=== PATIENT | male | born 1955 | race Caucasian/White ===

== ENCOUNTER 2021-07-16 10:31 | Emergency (ER) | payer OTHER, SELFPAY ==
[2021-07-16 10:40] VITALS: BP 119/58; PULSE 82; RESP 16; TEMP 38.2; O2SAT 98
--- NOTE | 2021-07-16 10:40 | ED.SKABFB ---
HPI - Skin/Abscess/Foreign Bdy General Chief complaint: Skin/Abscess/Foreign Body Stated complaint: left leg pain Time Seen by Provider: 07/16/21 10:33 Source: patient, family and RN notes reviewed History of Present Illness HPI narrative: Patient is a 66-year-old male who presents the urgent care with his spouse with complaints of left lower leg redness, pain, swelling with fever, chills and nausea. Patient states that all day yesterday he was feeling feverish with chills and nausea. States that late last night he had mild redness to the left lower leg and woke up this morning with the redness and swelling. Patient denies any history of DVT. Denies of any shortness of breath or chest pain. Patient has not taken anything [id number] for his symptoms. No other acute complaints. No acute distress noted. Patient and spouse aware of the plan of care. Some parts of this dictation were generated by voice recognition software and may contain typographical and/or grammatical inaccuracies. Related Data Allergies Allergy/AdvReac Type Severity Reaction Status Date / Time No Known Allergies Allergy Verified 07/16/21 10:51 Review of Systems Review of Systems: CONSTITUTIONAL: Denies fever, chills, or sweats. EYES: Denies visual changes, redness, or discharge. ENT: Denies rhinorrhea, congestion, sore throat, or otalgia. CARDIOVASCULAR: Denies chest pain, palpitations, or edema. RESPIRATORY: Denies cough or dyspnea. GASTROINTESTINAL: Denies abdominal pain, nausea, vomiting, or diarrhea. GENITOURINARY: Denies dysuria or hematuria. SKIN: Reports of redness, pain and swelling to the left lower leg MUSCULOSKELETAL: Denies back pain, joint pain, or myalgia. NEUROLOGIC: Denies headache, numbness, or weakness. All other systems reviewed are negative, except as documented in HPI. [facility] Family History Family History Sibling Family history of hepatitis Father Family history of congestive heart failure Social History Social History Smoking status: Former smoker Comments At the time of my signature, I reviewed and agree with the nursing past medical, surgical, social, and family history. There is no relevant family history pertinent to the patient complaint. Exam Narrative: GENERAL: This is a well-nourished, well-developed patient, in no apparent distress. HEAD: normocephalic, atraumatic. EYES: PERRL. Sclera clear/white. Vision is grossly intact. EARS: External ears normal NOSE: External nose normal with no obvious nasal discharge, nares without redness, no rhinorrhea. THROAT: Mucous membranes moist NECK: Neck supple CARDIOVASCULAR: Regular rate and rhythm without murmurs, gallops, or rubs. RESPIRATORY: Clear to auscultation. Breath sounds equal bilaterally. No wheezes, rales, or rhonchi. SKIN: See extremity. 4 x 4 centimeter patchy psoriasis to the left lower leg. Warm, intact NEURO: awake, alert, and oriented to person, place and time. There were no obvious focal neurologic abnormalities. EXTREMITIES: 1+ edema to left lower extremity. Erythema measuring 22 cm proximal to distal covering the circumference (16 inches) of the left lower extremity. Bilateral calves equal in size. Positive strong left pedal pulse with capillary refill less than 2 seconds. Range of motion to left lower extremity within normal normal limits. Mild to moderate tenderness to the medial upper inner thigh. Course Course Level of Care: Express Care Visit Vital Signs Vital signs: Vital Signs Temperature 100.8 F H 07/16/21 10:40 Pulse Rate 82 07/16/21 10:40 Respiratory Rate 16 07/16/21 10:40 Blood Pressure 119/58 L 07/16/21 10:40 Pulse Oximetry 98 07/16/21 10:40 Temperature 100.8 F H 07/16/21 10:40 Pulse Rate 82 07/16/21 10:40 Respiratory Rate 16 07/16/21 10:40 Blood Pressure 119/58 L 07/16/21 10:40 Pulse Oxime
== END 2021-07-16 10:55 | disposition short-term general hospital (02) ==
PROVIDERS: Emergency Provider Nurse Practitioner Family; PCP Internal Medicine
DX: L03.116 Cellulitis of left lower limb (principal); E78.00 Pure hypercholesterolemia, unspecified; I10 Essential (primary) hypertension; E11.9 Type 2 diabetes mellitus without complications
CPT/HCPCS: 99212; G0463

== ENCOUNTER 2021-07-16 11:06 | Emergency (ER) | payer OTHER, SELFPAY ==
[2021-07-16 11:10] VITALS: BP 148/70; PULSE 84; RESP 18; TEMP 37.1; O2SAT 100
[2021-07-16 12:09] LABS: Basophils Absolute Auto 0.1 K/mm3 (0.0-0.1); Basophils Percent Auto 0.4 % (0.2-1.2); Hematocrit 44.3 % (42.0-52.0); Hemoglobin 14.5 g/dL (14.0-18.0); Immature Granulocyte Absolute 0.12 K/mm3 (0.00-0.031); Immature Granulocyte Percent A 0.7 % (0-0.5); Lymphocytes Absolute Auto 1.05 K/mm3 (0.9-3.2); Lymphocytes Percent Auto 6.1 % (18.3-44.2); Mean Corpuscular HGB Conc 32.7 g/dl (32-36); Mean Corpuscular Hemoglobin 29.7 pg (26-34); Mean Corpuscular Volume 90.8 fl (80-100); Mean Platelet Volume 9.9 fl (7.4-10.4); Monocytes Absolute Auto 1.6 K/mm3 (0.1-0.6); Monocytes Percent Auto 9.1 % (2.6-8.5); Neutrophils Absolute Auto 14.3 K/mm3 (1.3-6.7); Neutrophils Percent Auto 83.7 % (45.5-73.1); Platelet Count Result 201 k/mm3 (150-375); Red Blood Count 4.88 M/mm3 (4.6-6.20); Red Cell Distribution Width 13.2 % (11.5-14.5); White Blood Count 17.1 K/mm3 (4.5-10.0)
[2021-07-16 12:36] LABS: Anion Gap 7 mmol/L (8-16); Blood Urea Nitrogen 22 mg/dL (9-20); Calcium 9.1 mg/dL (8.4-10.2); Carbon Dioxide 29 mmol/L (22-30); Chloride 95 mmol/L (98-107); Estimated CRCL calculation 83 ml/min; Estimated Glomerular Filt Rate > 60; Glucose 184 mg/dL (65-110); Potassium 4.5 mmol/L (3.4-5.0); Sodium 131 mmol/L (137-145)
--- NOTE | 2021-07-16 13:38 | ED.LOWEXIN ---
HPI - Extremity Injury (Lower) General Chief Complaint: Extremity Injury, Lower Stated Complaint: leg Time Seen by Provider: 07/16/21 11:14 History of Present Illness HPI Narrative: Patient is a 66-year-old male who presents ER with concern for infection to his left ivey. Referred from urgent care. No fevers or chills or sweats. Noticed some redness yesterday over his ivey and when he woke up today it was circumferential. Has some mild streaking up his leg. No fevers or chills or sweats. No known trauma to the leg. He does have some psoriatic plaques with dried skin that may have served as a source to introduce infection. No purulent drainage. No chest pain or chest pressure or dyspnea. Related Data Allergies Allergy/AdvReac Type Severity Reaction Status Date / Time No Known Allergies Allergy Verified 07/16/21 11:12 Review of Systems Review of Systems: All systems reviewed & are unremarkable except as noted in HPI and below Constitutional: Constitutional: Denies chills, Denies fever(s) and Denies weakness ENT: Denies nasal congestion and Denies sore throat Cardiovascular: Cardiovascular: Denies chest pain and Denies radiating jaw, neck or arm pain Respiratory: Respiratory: Denies cough and Denies dyspnea Integumentary/Breasts: Skin/Breast: Denies pruritus, Reports rash and Reports skin ulcer Neurologic: Denies focal weakness and Denies numbness PMFSH Past Medical History Medical History (Updated 07/16/21 @ 13:43 by Colt Segovia MD) Essential (primary) hypertension Other psoriasis Type 2 diabetes mellitus without complications Surgical History Surgical History (Updated 07/16/21 @ 13:40 by Colt Segovia MD) No pertinent past surgical history Family History Family History Sibling Family history of hepatitis Father Family history of congestive heart failure Social History Social History Smoking status: Former smoker Exam Narrative: GENERAL: Well-appearing, well-nourished, and in no acute distress. HEAD: Normocephalic, atraumatic. CHEST: Clear to auscultation. No respiratory distress. HEART: Regular rate and rhythm. Normal peripheral pulses. ABDOMEN: Soft, nontender, nondistended. EXTREMITIES: Normal range of motion. 1+ edema. SKIN: Warm, dry, circumferential cellulitis left ivey with some dried psoriatic plaques. Lymphangitic streaking from the knee to the mid thigh that is very light. NEURO: Alert and oriented x3. PSYCH: Normal mood and affect. Course Course Emergency Course: Discussed diagnosis and treatment plan. Patient received IV cefazolin. Will write for some antibiotic therapy at home. Discussed return precautions. Vital Signs Vital signs: Vital Signs Temperature 98.8 F 07/16/21 11:10 Pulse Rate 84 07/16/21 11:10 Respiratory Rate 18 07/16/21 11:10 Blood Pressure 148/70 H 07/16/21 11:10 Pulse Oximetry 100 07/16/21 11:10 Temperature 98.8 F 07/16/21 11:10 Pulse Rate 84 07/16/21 11:10 Respiratory Rate 18 07/16/21 11:10 Blood Pressure 148/70 H 07/16/21 11:10 Pulse Oximetry 100 07/16/21 11:10 MDM - Extremity Injury (Lower) Lab Data Result diagrams: 07/16/21 12:03 07/16/21 12:03 Labs: Lab Results 07/16/21 07/16/21 07/16/21 Range/Units 12:03 12:03 12:03 WBC 17.1 H (4.5-10.0) K/mm3 RBC 4.88 (4.6-6.20) M/mm3 Hgb 14.5 (14.0-18.0) g/dL Hct 44.3 (42.0-52.0) % MCV 90.8 (80-100) fl MCH 29.7 (26-34) pg MCHC 32.7 (32-36) g/dl RDW 13.2 (11.5-14.5) % Plt Count 201 (150-375) k/mm3 MPV 9.9 (7.4-10.4) fl Immature Gran % (Auto) 0.7 H (0-0.5) % Neut % (Auto) 83.7 H (45.5-73.1) % Lymph % (Auto) 6.1 L (18.3-44.2) % Ritchie % (Auto) 9.1 H (2.6-8.5) % Eos % (Auto) 0.0 (0-4.4) % Baso % (Auto) 0.4 (0.2-1.2) % Lymph # (A
[2021-07-16] MEDS: SODIUM CHLORIDE 0.9% IV 1,000 ML 999 ML IV CONT (13:48)
[2021-07-16 14:34] VITALS: BP 121/68; PULSE 78; RESP 18; TEMP 36.8; O2SAT 98
== END 2021-07-16 14:36 | disposition home or self-care (01) ==
PROVIDERS: Emergency Provider Emergency Medicine; PCP Internal Medicine
DX: L03.116 Cellulitis of left lower limb (principal); I10 Essential (primary) hypertension; E11.9 Type 2 diabetes mellitus without complications; Z87.891 Personal history of nicotine dependence; Z79.84 Long term (current) use of oral hypoglycemic drugs
CPT/HCPCS: 36415; 80048; 83605; 85025; 96361; 96365; 99284; J0690; J7030

== ENCOUNTER 2021-07-18 15:29 | Outpatient (CLI) | payer OTHER, SELFPAY ==
--- NOTE | ~2021-07-18 | US_ITS ---
EXAMINATION: US venous doppler [facility] DATE: 07/18/2021 16:13 INDICATION: Left lower limb localized edema. TECHNIQUE: Grayscale ultrasound images without and with compression and Doppler ultrasound images of the left lower extremity veins were obtained. COMPARISON: None. FINDINGS: The visualized portions of left common femoral vein, profunda (deep) femoral vein, femoral vein, popl iteal vein, peroneal veins, posterior tibial veins, and greater saphenous vein outflow are patent. IMPRESSION: 1. No deep venous thrombosis. Reviewed, dictated and finalized at location A.
== END 2021-07-18 15:30 | disposition home or self-care (01) ==
LOC: ANHIMG 15:33
PROVIDERS: PCP Internal Medicine; Visit Provider Family Medicine
DX: R60.0 Localized edema (principal)
CPT/HCPCS: 93971